=== PATIENT | male | born 1980 | race Hispanic/Latino ===

== ENCOUNTER 2018-09-02 11:21 | Emergency (ER) | payer SELFPAY ==
[2018-09-02] MEDS ORDERED: ISOVUE-370 76%-LOCM 1 ML ONE (11:46)
--- NOTE | 2018-09-02 13:00 | ULT ---
Scrotal sonogram with duplex evaluation HISTORY: Scrotal pain. FINDINGS: Right testicle is 3.3 cm and left is 3.5 cm. Each has a normal sonographic appearance with good color and spectral Doppler flow. Minimal fluid within each side of the scrotum, a nonspecific finding. IMPRESSION: No evidence of testicular mass or torsion.
[2018-09-02 13:06] LABS: #Eosinphils 0.1 thou/uL (0.0-0.7); #Lymphocytes 2.5 thou/uL (1.20-3.40); #Monocytes 0.7 thou/uL (0.11-0.59); #Neutrophils 5.5 thou/uL (1.40-6.50); %Basophils 0.4 % (0.0-1.0); %Eosinophils 0.8 % (0.0-10.0); %Lymphocytes 28.9 % (21.0-51.0); %Monocytes 7.4 % (0.0-10.0); %Neutrophils 62.5 % (42.0-75.0); Hemoglobin 15.2 g/dL (14.0-18.0); Mean Corpuscular HGB CONC 34.2 g/dL (32.0-36.0); Mean Corpuscular Hemoglobin 29.8 pg (27.0-31.0); Mean Corpuscular Volume 87.1 fL (78.0-98.0); Mean Platelet Volume 8.5 fL (7.4-10.4); Platelet Count 219 thou/uL (130-400); RBC Distribution Width 12.1 % (11.5-14.5); Red Blood Cell (RBC) Count 5.08 mill/uL (4.70-6.10); White Blood Cell (WBC) Count 8.8 thou/uL (4.8-10.8)
--- NOTE | 2018-09-02 13:18 | CT ---
ABDOMEN AND PELVIC CT SCAN WITH IV CONTRAST: HISTORY: Injury, pain to right groin radiating to leg following a lifting injury. FINDINGS: Lung bases appear clear. Liver, gallbladder, pancreas, spleen, and adrenal glands are unremarkable. No renal calculus or acute obstruction. No CT evidence for acute appendicitis. No evidence for large or small bowel obstruction. No abscess, adenopathy, or abnormal fluid collection within the ab domen or pelvis. Bilateral fat-containing inguinal hernias. IMPRESSION: No significant acute process in the abdomen or pelvis. No renal calculus or obstruction. No CT e vidence for acute appendicitis. Bilateral fat containing inguinal hernias. POS: OFF
[2018-09-02 13:28] LABS: ALT (SGPT) 33 U/L (8-55); AST (SGOT) 27 U/L (5-34); Albumin 4.5 g/dL (3.5-5.0); Alkaline Phosphatase 95 U/L (40-150); Anion Gap 10 mmol/L (10-20); BUN (Urea Nitrogen) 16 mg/dL (8.9-20.6); Bilirubin, Total 0.7 mg/dL (0.2-1.2); Calc. Creatinine Clearance 0 mL/min (70-130); Calcium 9.9 mg/dL (7.8-10.44); Carbon Dioxide 28 mmol/L (22-29); Chloride 102 mmol/L (98-107); Estimated GFR-MDRD Greater than 90; Globulin 3.2 g/dL (2.4-3.5); Glucose 94 mg/dL (70-105); Protein, Total 7.7 g/dL (6.0-8.3); Sodium 136 mmol/L (136-145)
[2018-09-02] MEDS ORDERED: Ketorolac Tromethamine 30 MG/ML VIAL ONE (13:49)
== END 2018-09-02 14:03 | disposition home or self-care (01) ==
LOC: ERS 11:21
DX: S39.011A Strain of muscle, fascia and tendon of abdomen, initial encounter (principal); K40.90 Unilateral inguinal hernia, without obstruction or gangrene, not specified as recurrent; X50.0XXA Overexertion from strenuous movement or load, initial encounter
CPT/HCPCS: 36415; 74177; 76870; 80053; 85025; 93976; 96372; J1885; Q9966

== ENCOUNTER 2018-10-14 09:17 | Emergency (ER) | payer OTHER ==
[2018-10-14] MEDS ORDERED: Ondansetron PF 4 MG/2 ML Vial ONE (09:53)
[2018-10-14] MEDS ORDERED: Morphine 4 MG/ML VIAL ONE (09:53)
[2018-10-14 10:06] LABS: #Eosinphils 0.1 thou/uL (0.0-0.7); #Lymphocytes 2.8 thou/uL (1.20-3.40); #Monocytes 0.6 thou/uL (0.11-0.59); %Basophils 0.4 % (0.0-1.0); %Eosinophils 1.4 % (0.0-10.0); %Monocytes 7.9 % (0.0-10.0); %Neutrophils 53.3 % (42.0-75.0); Hemoglobin 16.3 g/dL (14.0-18.0); Mean Corpuscular HGB CONC 33.5 g/dL (32.0-36.0); Mean Corpuscular Hemoglobin 28.8 pg (27.0-31.0); Mean Corpuscular Volume 86.1 fL (78.0-98.0); Mean Platelet Volume 8.3 fL (7.4-10.4); Platelet Count 221 thou/uL (130-400); RBC Distribution Width 11.9 % (11.5-14.5); Red Blood Cell (RBC) Count 5.66 mill/uL (4.70-6.10); White Blood Cell (WBC) Count 7.5 thou/uL (4.8-10.8)
[2018-10-14 10:30] LABS: Anion Gap 14 mmol/L (10-20); BUN (Urea Nitrogen) 13 mg/dL (8.9-20.6); Calc. Creatinine Clearance 0 mL/min (70-130); Calcium 10.4 mg/dL (7.8-10.44); Carbon Dioxide 24 mmol/L (22-29); Chloride 103 mmol/L (98-107); Estimated GFR-MDRD Greater than 90; Glucose 100 mg/dL (70-105); Potassium 3.8 mmol/L (3.5-5.1); Sodium 137 mmol/L (136-145)
--- NOTE | 2018-10-14 10:40 | CT ---
CT Abdomen Pelvis W Con History: Abdominal pain. Right lower quadrant pain. Comparison: CT abdomen and pelvis September 02, 2018 FINDINGS: The lung bases are clear. No significant pericardial effusion. Mild hepatic steatosis. Norm al proximal small bowel rotation. Spleen, adrenal glands, pancreas, kidneys are unremarkable. No dilated loops of large or small bowel. The appendix is visualized and is normal. No retroperitoneal periaortic adenopathy. The aortoiliac contour is normal. No acute osseous abnormality. Moderate degenerative disc space disease centered at L5/S1 with circumf erential disc osteophyte complex. Small fat-containing bilateral indirect inguinal hernias. Impression: Unchanged examination the abdomen and pelvis. Small bilateral fat-containing indirect ing uinal hernias.
== END 2018-10-14 11:17 | disposition home or self-care (01) ==
LOC: ERS 09:17
DX: R10.31 Right lower quadrant pain (principal); I10 Essential (primary) hypertension
CPT/HCPCS: 74177; 80048; 85025; 96361; 96374; 96375; J2270; J2405

== ENCOUNTER 2018-11-04 11:29 | Emergency (ER) | payer OTHER | END 2018-11-04 13:25 | disposition home or self-care (01) | LOC: ERS 11:29 | DX: K40.90 Unilateral inguinal hernia, without obstruction or gangrene, not specified as recurrent (principal); I10 Essential (primary) hypertension | CPT/HCPCS: 99283 ==

== ENCOUNTER 2019-06-03 14:32 | Outpatient (CLI) | payer OTHER ==
--- NOTE | 2019-06-04 08:46 | MRI ---
MRI PELVIS WITHOUT CONTRAST: HISTORY: 1040.9, inguinal hernia. COMPARISON: None. FINDINGS: Evidence of relatively recent bilateral inguinal hernia repair without complication. No re-herniatio n. Testicles appear to have normal signal. No significant hydrocele. No evidence of fat-containing femoral hernias. No adenopathy. No obturator hernia. No evidence of a sports hernia, athletic ulalgia. The piriformis muscles are symmetric with normal bulk. Obturator muscles are normal. The adductor, hip flexor, hip extensor muscles are all normal. Intrapelvic soft tissues: There is a small left seminal vesicle cyst. No free fluid. Uncomplicated appearance of the inguinal hernia repair. The rectum and sigmoid colon is normal. IMPRESSION: 1. Uncomplicated appearance to the inguinal hernia repairs. 2. No re-herniation, femoral hernia, or obturator hernia. 3. Small left seminal vesicle cyst. 4. No hydrocele. POS: CET
== END 2019-06-03 14:33 | disposition home or self-care (01) ==
LOC: BICMRI 14:32
DX: K40.90 Unilateral inguinal hernia, without obstruction or gangrene, not specified as recurrent (principal); N50.89 Other specified disorders of the male genital organs
CPT/HCPCS: 72195

== ENCOUNTER 2023-10-01 08:22 | Outpatient (CLI) | payer OTHER | END 2023-10-01 08:23 | disposition home or self-care (01) | LOC: BICRAD 08:22 | PROVIDERS: ATTEND Family Medicine | DX: R76.12 Nonspecific reaction to cell mediated immunity measurement of gamma interferon antigen response without active tuberculosis (principal) | CPT/HCPCS: 71046 ==